=== PATIENT | female | born 1965 | race Caucasian/White ===

== ENCOUNTER 2022-08-22 21:38 | Inpatient (IN) | payer BC ==
[~2022-08-22] VITALS: Ht 157.5 cm; Wt 77.4 kg
[2022-08-22] MEDS ORDERED: BUPR150T2 PO (21:49)
[2022-08-22 22:16] LABS: BASOPHILS ABSOLUTE AUTO 0.07 K/mm3 (0.00-0.23); BASOPHILS PERCENT AUTO 1 % (0-2); EOSINOPHILS ABSOLUTE AUTO 0.18 K/mm3 (0.00-0.68); EOSINOPHILS PERCENT AUTO 2 % (0-6); Hematocrit 34.6 % (33.0-51.0); IMMATURE GRAN ABSOLUTE AUTO 0.05 K/mm3 (0.00-0.10); IMMATURE GRAN PERCENT AUTO 0 % (0-1); LYMPHOCYTES ABSOLUTE AUTO 1.42 K/mm3 (0.84-5.20); LYMPHOCYTES PERCENT AUTO 12 % (21-46); MONOCYTES ABSOLUTE AUTO 0.59 K/mm3 (0.16-1.47); MONOCYTES PERCENT AUTO 5 % (4-13); Mean Corpuscular HGB 29.2 pg (26.0-34.0); Mean Corpuscular HGB Conc 31.8 g/dL (31.5-36.5); Mean Corpuscular Volume 92 fL (80-100); Mean Platelet Volume 9.9 fL (9.1-12.4); NEUTROPHILS ABSOLUTE AUTO 9.75 K/mm3 (1.96-9.15); NEUTROPHILS PERCENT AUTO 81 % (41-73); Platelet Count 449 K/mm3 (150-400); RDW Coefficient Variation 13.3 % (11.7-14.2); RDW Standard Deviation 45.2 fL (35.1-46.3); Red Blood Cell Count 3.77 M/mm3 (3.80-5.20); White Blood Cell Count 12.06 K/mm3 (4.00-11.30)
[2022-08-22 22:54] LABS: Albumin, Blood 3.2 g/dL (3.4-5.0); Albumin/Globulin Ratio 0.8 (0.8-1.8); Bilirubin, Total 0.5 mg/dL (0.1-1.0); Bun/Creatinine Ratio 19.9 (12.0-20.0); Creatinine, Blood 0.91 mg/dL (0.40-1.00); Globulin, Blood 4.1 g/dL (2.2-4.0); Total Protein, Blood 7.3 g/dL (6.4-8.2)
--- NOTE | 2022-08-23 04:53 | NUR ---
ADMIT NOTE HANDOFF RECEIVED FROM [employer] SUPERVISOREYAD BERMUDEZ. PT ARRIVED TO FLOOR VIA [facility]. PT ORIENTED TO UNIT. CALL BUTTON WITHIN REACH
--- NOTE | 2022-08-23 06:21 | NUR ---
CALLED HOSPITALIST INFORMED HIM OF SVT AND RVR @ 160'S BPM SINCE 0537 HRS. CARDIZEM PUSH ORDERED. CALLED PHARMACY TO EXPEDITE. MED ADMINISTERED TO GOOD EFFECT. TELE REPORTS: BACK TO NSR @ 97 BPM.
--- NOTE | 2022-08-23 06:49 | NUR ---
CALLED HOSPITALIST JUSTIN ORDERED. TRANSFER TO U
--- NOTE | 2022-08-23 07:25 | NUR ---
CALLED HOSPITALIST PT HR CLIMBED TO 170'S AGAIN. CALLED HOSPITALIST. 15 MG CARDIZEM PUSH GIVEN. HR AGAIN NSR @ 93. BUT QUICKLY AFTER TELE REPORTS HR TO RVR 200'S BPM. PT TRANSFERED TO ICU FOR CARDIZEM DRIP (PCU STATUS) - PER HOSPITALIST'S ORDER
--- NOTE | 2022-08-23 08:45 | NUR ---
PT RECEIVED FROM MEDICAL FLOOR ACCOMPANIED BY KRYSTAL,RN AND PCT. SHE IS A/O ABLE TO MOVE WELL TO THE OTHER BED. CARDIZEM GTT STARTED PER ORDERS WITH STABLE BP. IN TO SEE PT. NUCLEAR MED IN TO SEE PT FOR PART OF THE STRESS TEST. RENAL ULTRASOUND HERE BUT SENT AWAY PT WAS GETTING READY TO GO TO THE NUCLEAR MED. HEART RATE IN THE 90'S ON THE CARDIZEM GTT AT 15MG/HR. PT TO NUCLEAR MED AT 0835, HEART RATE BACK TO THE 160'S. WILL CONTINUE TO MONITOR AND WILL REASSESS UPON HER RETURN.
[2022-08-23 09:17] LABS: Source, Urine Clean Catch
[2022-08-23 09:29] LABS: Appearance, Urine Clear (Clear); Bilirubin, Urine Neg (Neg); Blood, Urine Neg (Neg); Color, Urine Yellow (P-Yellow); Glucose Qualitative, Urine Neg (Neg); Ketones, Urine Neg (Neg); Leukocyte Esterase, Urine Neg (Neg); Nitrite, Urine Neg (Neg); Protein, Urine Neg (Neg); Urobilinogen, Urine NORM (Normal); pH, Urine 6.5 (5.0-8.0)
[2022-08-23 10:58] LABS: Anti-Xa UFH, PHA Monitoring 0.12 IU/mL; International Normalized Ratio 1.09; Prothrombin Time Results 11.4 Sec (9.7-11.5)
--- NOTE | 2022-08-23 13:08 | NUR ---
CAME TO CONSULT ON PATIENT, MULTIPLE ORDERS RECEIVED. CARDIZEM GTT STOPPED, HEPARIN GTT STOPPED, PT GIVEN TORADOL, COLCHICINE AND LOPRESSOR. HEART RATE IS FINALLY COMING DOWN TO 100'S. HAS MAINTAINED >150 FOR LAST 3 HOURS. PT IS C/O EXHAUSTION AND DIAPHORESIS.
--- NOTE | 2022-08-23 14:46 | NUR ---
1350 CALL TO R/T PT'S CONVERTED TO SINUS AND BP IS NOW LOW. ORDERS RECEIVED AND DONE. PT RESTED FOR A BRIEF AMOUNT OF TIME. IV FLUID BOLUS OF 500ML NS GIVEN, NOW MAINTENANCE AT 100ML/HR. PT UP TO BR, VISITED WITH , RESTURNS TO RESTING.
--- NOTE | 2022-08-23 15:41 | NUR ---
After spending time with patient's mother who is a patient on the Medical floor, I promised that I would conduct a visit with Stephenie. She immediately told me about the events that led to her hospitalization and how exhausted she is currently. She talks about her family, her concerns for her mother and her hopes for the future. I provide therapeutic listening and prayer. Patient responded well and showed signs of greater peace. Spiritual care will continue to remain available to patient and family.
--- NOTE | 2022-08-23 15:55 | NUR ---
PATIENT EXPERIENCING DIARRHEA, SPOKE WITH , WILL TRY BANANA TROL.
--- NOTE | 2022-08-23 18:05 | NUR ---
Telephone report received from EYAD Hoffmann. Pt to come to PCU 8
--- NOTE | 2022-08-23 18:21 | NUR ---
Pt arrived to PCU.
--- NOTE | 2022-08-23 18:28 | NUR ---
Pt arrived to PCU, transferred independently from one bed to the other. Alert and completely oriented. Cooperative with care and pleasantly conversant. Denies any pain/discomfort at this time. Provided with written Pericarditis educational material, which she is reading at this time. Encouraged pt to ask staff if she has any questions. Pt noted to be in atrial fibrillation when telemetry was applied, at 136 bpm. At this time she converted to sinus rhythm, 78-91 bpm while sitting up in the bed. Blood pressure is stable. IV infusing NS at 100 cc/hour.
[2022-08-24 04:11] LABS: BASOPHILS ABSOLUTE AUTO 0.06 K/mm3 (0.00-0.23); BASOPHILS PERCENT AUTO 1 % (0-2); EOSINOPHILS ABSOLUTE AUTO 0.55 K/mm3 (0.00-0.68); EOSINOPHILS PERCENT AUTO 6 % (0-6); Hematocrit 32.1 % (33.0-51.0); Hemoglobin 10.1 g/dL (11.5-16.0); IMMATURE GRAN ABSOLUTE AUTO 0.04 K/mm3 (0.00-0.10); IMMATURE GRAN PERCENT AUTO 0 % (0-1); LYMPHOCYTES PERCENT AUTO 22 % (21-46); MONOCYTES ABSOLUTE AUTO 0.51 K/mm3 (0.16-1.47); MONOCYTES PERCENT AUTO 5 % (4-13); Mean Corpuscular HGB 29.2 pg (26.0-34.0); Mean Corpuscular HGB Conc 31.5 g/dL (31.5-36.5); Mean Corpuscular Volume 93 fL (80-100); Mean Platelet Volume 10.5 fL (9.1-12.4); NEUTROPHILS ABSOLUTE AUTO 6.45 K/mm3 (1.96-9.15); NEUTROPHILS PERCENT AUTO 66 % (41-73); Platelet Count 425 K/mm3 (150-400); RDW Coefficient Variation 13.3 % (11.7-14.2); RDW Standard Deviation 45.6 fL (35.1-46.3); Red Blood Cell Count 3.46 M/mm3 (3.80-5.20); White Blood Cell Count 9.71 K/mm3 (4.00-11.30)
[2022-08-24 04:34] LABS: Albumin, Blood 2.8 g/dL (3.4-5.0); Anion Gap 1 mmol/L (6-16); Blood Urea Nitrogen 15 mg/dL (8-24); Bun/Creatinine Ratio 20.5 (12.0-20.0); CO2, Blood 24 mmol/L (21-32); Calcium, Blood 9.1 mg/dL (8.5-10.1); Chloride, Blood 113 mmol/L (98-108); Creatinine, Blood 0.73 mg/dL (0.40-1.00); Glomerular Filtration Rate 95 (60-); Glucose, Blood 105 mg/dL (70-99); Magnesium, Blood 2.3 mg/dL (1.6-2.4); Phosphorus, Blood 3.5 mg/dL (2.5-4.9); Potassium, Blood 4.1 mmol/L (3.5-5.5); Sodium, Blood 138 mmol/L (136-145)
--- NOTE | 2022-08-24 09:48 | NUR ---
CARE ASSUMPTION This RN assumed care at 0700. vital signs stable. patient is alert and oriented x4. patient reports no chest pain/pressure. patient reports no pain. patient reports shortness of breath when moving around and doing acitivities this morning otherwise no shortness of breath. patient is indepdent in the room. patient uses call light appropriately to make needs known. MD [place] in to see patient and discussed plan of care. Plan of care is up to date. call light within reach and bed in lowest position.
--- NOTE | 2022-08-24 16:57 | NUR ---
SHIFT SUMMARY patient neuro remains unchanged. vital signs remain stable throughout the shift. patient has been indepdent in her room throughout the day with this RN checking in. This RN offered the patient to go for a walk and patient declined saying she will sit in the chair and organize her belongings bags. Patient has repositioned self and will get into chair and back into bed. Patient had family visiting throughout the day. No acute changes. Plan up to date. call light within reach and bed in lowest position.
--- NOTE | 2022-08-24 20:29 | NUR ---
PT REFUSES SCDS TONIGHT.
[2022-08-25 04:30] LABS: BASOPHILS ABSOLUTE AUTO 0.04 K/mm3 (0.00-0.23); BASOPHILS PERCENT AUTO 0 % (0-2); EOSINOPHILS ABSOLUTE AUTO 0.74 K/mm3 (0.00-0.68); EOSINOPHILS PERCENT AUTO 8 % (0-6); Hematocrit 36.5 % (33.0-51.0); Hemoglobin 11.2 g/dL (11.5-16.0); IMMATURE GRAN ABSOLUTE AUTO 0.03 K/mm3 (0.00-0.10); IMMATURE GRAN PERCENT AUTO 0 % (0-1); LYMPHOCYTES PERCENT AUTO 24 % (21-46); MONOCYTES ABSOLUTE AUTO 0.48 K/mm3 (0.16-1.47); MONOCYTES PERCENT AUTO 5 % (4-13); Mean Corpuscular HGB 28.8 pg (26.0-34.0); Mean Corpuscular HGB Conc 30.7 g/dL (31.5-36.5); Mean Corpuscular Volume 94 fL (80-100); Mean Platelet Volume 10.5 fL (9.1-12.4); NEUTROPHILS ABSOLUTE AUTO 5.76 K/mm3 (1.96-9.15); NEUTROPHILS PERCENT AUTO 62 % (41-73); Platelet Count 480 K/mm3 (150-400); RDW Coefficient Variation 13.3 % (11.7-14.2); RDW Standard Deviation 45.7 fL (35.1-46.3); Red Blood Cell Count 3.89 M/mm3 (3.80-5.20); White Blood Cell Count 9.25 K/mm3 (4.00-11.30)
--- NOTE | 2022-08-25 07:46 | NUR ---
CARE ASSUMPTION This RN assumed care at 0700. vital signs stable. tele nsr 70s. patient is alert and oriented x4. perrla. patient reports no pain. patient reports no chest pain. patient reports no shortness of breath. abd is active and nontender. skin is clean dry and intact. see shift assessment for further detials. Patient is indepdent in the room and uses call light appropriately. Patient performed own ADL's and took a shower this AM. Plan is for patient to be discharged home today. Plan of care is up to date. call light is within reach.
[2022-08-25] MEDS ORDERED: COLCHICINE0.6 MG PO (08:16)
[2022-08-25] MEDS ORDERED: IBUP600 PO (08:16)
[2022-08-25] MEDS ORDERED: METO100ER PO (08:17)
[2022-08-25] MEDS ORDERED: PANT40 PO (08:17)
--- NOTE | 2022-08-25 09:31 | NUR ---
DISCHARGE NOTE SURVIVAL SPECIALIST GABE, WENT OVER DISCHARGE EDUCATION WITH PATIENT. PATIENT MEDICATIONS FAXED TO [facility] ON [address]. PATIENT LEFT IN NO DISTRESS WITH ALL BELONGINGS.
== END 2022-08-25 09:19 | disposition home or self-care (01) | DRG 315 ==
LOC: ER 21:38 → MEDS 21:39 → PCU 21:39 → MEDS 08-23 04:50 → ICUE 08-23 07:35 → PCU 08-23 12:47
PROVIDERS: Emergency Medicine; Family Medicine; ADMIT Internal Medicine
DX: I30.9 Acute pericarditis, unspecified (principal); I47.1 Supraventricular tachycardia; J90 Pleural effusion, not elsewhere classified; F32.A Depression, unspecified; R79.1 Abnormal coagulation profile; R10.9 Unspecified abdominal pain; F17.210 Nicotine dependence, cigarettes, uncomplicated; I48.0 Paroxysmal atrial fibrillation; D72.829 Elevated white blood cell count, unspecified; I95.9 Hypotension, unspecified; F41.9 Anxiety disorder, unspecified; F10.21 Alcohol dependence, in remission; R94.31 Abnormal electrocardiogram [ECG] [EKG]; E66.9 Obesity, unspecified; Z68.30 Body mass index [BMI] 30.0-30.9, adult; Z79.82 Long term (current) use of aspirin; Z91.048 Other nonmedicinal substance allergy status; Z79.899 Other long term (current) drug therapy; Z71.6 Tobacco abuse counseling
CPT/HCPCS: 36415; 71046; 71260; 76770; 78451; 80053; 80069; 81003; 83735; 83880; 84484; 85025; 85379; 85520; 85610; 85651; 85730; 86038; 86141; 87040; 93005; 93010; 93306; 96365; 96372; 96375; 99285-25; A9270; A9500; G0378; J1644; J1650; J1885; J3475; J7030; J7040; Q9967

== ENCOUNTER → 2022-09-07 | Outpatient (CLI) | payer BC ==
[~2022-09-07] MED LIST: BUPR150T2 PO; COLCHICINE0.6 MG PO; IBUP600 PO; METO100ER PO; PANT40 PO
[2022-09-12 15:11] LABS: HPV 16 Negative (Negative); HPV 18 Negative (Negative); HPV OTHER HR TYPES Negative (Negative)
== END ==
LOC: LAB SHORT 16:39 → LAB 16:39
PROVIDERS: Family Medicine
DX: Z01.419 Encounter for gynecological examination (general) (routine) without abnormal findings (principal)
CPT/HCPCS: 87624; G0145

== ENCOUNTER 2022-09-28 07:17 | Day surgery (SDC) | payer BC | END 2022-09-28 22:39 | disposition home or self-care (01) | LOC: CT 07:17 | DX: I25.10 Atherosclerotic heart disease of native coronary artery without angina pectoris (principal); I25.84 Coronary atherosclerosis due to calcified coronary lesion; J90 Pleural effusion, not elsewhere classified; J98.11 Atelectasis; R07.9 Chest pain, unspecified; I48.0 Paroxysmal atrial fibrillation; I10 Essential (primary) hypertension; Z79.899 Other long term (current) drug therapy | CPT/HCPCS: 75574; Q9967 ==

== ENCOUNTER 2023-07-24 07:23 | Emergency (ER) | payer BC ==
[~2023-07-24] VITALS: Ht 157.5 cm; Wt 81.7 kg
[2023-07-24] MEDS ORDERED: ATOR40TA PO (09:21)
[2023-07-24] MEDS ORDERED: SPIR25 PO (09:21)
[2023-07-24] MEDS ORDERED: AMLO10 PO (09:22)
[2023-07-24 09:24] LABS: Source, Urine Clean Catch
[2023-07-24 09:29] LABS: BASOPHILS ABSOLUTE AUTO 0.06 K/mm3 (0.00-0.23); BASOPHILS PERCENT AUTO 1 % (0-2); EOSINOPHILS ABSOLUTE AUTO 0.15 K/mm3 (0.00-0.68); EOSINOPHILS PERCENT AUTO 2 % (0-6); Hematocrit 39.1 % (33.0-51.0); Hemoglobin 12.9 g/dL (11.5-16.0); IMMATURE GRAN ABSOLUTE AUTO 0.02 K/mm3 (0.00-0.10); IMMATURE GRAN PERCENT AUTO 0 % (0-1); LYMPHOCYTES ABSOLUTE AUTO 2.31 K/mm3 (0.84-5.20); LYMPHOCYTES PERCENT AUTO 24 % (21-46); MONOCYTES ABSOLUTE AUTO 0.58 K/mm3 (0.16-1.47); MONOCYTES PERCENT AUTO 6 % (4-13); Mean Corpuscular HGB 30.4 pg (26.0-34.0); Mean Corpuscular Volume 92 fL (80-100); Mean Platelet Volume 11.2 fL (9.1-12.4); NEUTROPHILS ABSOLUTE AUTO 6.61 K/mm3 (1.96-9.15); NEUTROPHILS PERCENT AUTO 68 % (41-73); Platelet Count 323 K/mm3 (150-400); RDW Coefficient Variation 13.7 % (11.7-14.2); RDW Standard Deviation 46.7 fL (35.1-46.3); Red Blood Cell Count 4.24 M/mm3 (3.80-5.20); White Blood Cell Count 9.73 K/mm3 (4.00-11.30)
[2023-07-24 09:30] LABS: Bilirubin, Urine Neg (Neg); Blood, Urine Neg (Neg); Glucose Qualitative, Urine Neg (Neg); Ketones, Urine Neg (Neg); Leukocyte Esterase, Urine Neg (Neg); Nitrite, Urine Neg (Neg); Protein, Urine Neg (Neg); Urobilinogen, Urine NORM (Normal)
[2023-07-24 09:31] LABS: Appearance, Urine Clear (Clear); Color, Urine Yellow (P-Yellow)
[2023-07-24] MEDS ORDERED: Acetaminophen 500 MG Tab PO ONE (09:45)
[2023-07-24 10:27] LABS: Albumin, Blood 4.1 g/dL (3.4-5.0); Albumin/Globulin Ratio 1.1 (0.8-1.8); Bilirubin, Total 0.4 mg/dL (0.1-1.0); Bun/Creatinine Ratio 19.3 (12.0-20.0); Calcium, Blood 9.7 mg/dL (8.5-10.1); Creatinine, Blood 1.14 mg/dL (0.40-1.00); Globulin, Blood 3.8 g/dL (2.2-4.0); Potassium, Blood 3.7 mmol/L (3.5-5.5); Total Protein, Blood 7.9 g/dL (6.4-8.2)
[2023-07-24 12:28] VITALS: BP 119/79
== END 2023-07-24 12:27 | disposition home or self-care (01) ==
LOC: ER 07:23
PROVIDERS: Physician Assistant
DX: R55 Syncope and collapse (principal); F17.210 Nicotine dependence, cigarettes, uncomplicated
CPT/HCPCS: 80053; 81003; 84484; 85025; 93005; 93010; 99284-25; A9270